=== PATIENT | male | born 1975 | race Caucasian/White ===

== ENCOUNTER 2023-12-30 11:26 | Outpatient (REF) | payer MEDICARE, MEDICAID, SELFPAY | END 2023-12-30 11:27 | disposition home or self-care (01) | LOC: HO.HAP 11:26 | PROVIDERS: PCP Internal Medicine; Visit Provider Internal Medicine | DX: Z46.1 Encounter for fitting and adjustment of hearing aid (principal); H90.3 Sensorineural hearing loss, bilateral | CPT/HCPCS: 92593; 99499 ==

== ENCOUNTER 2023-12-30 13:15 | Outpatient (REF) | payer SELFPAY | END 2023-12-30 13:16 | disposition home or self-care (01) | LOC: HO.HAP 13:15 | PROVIDERS: Visit Provider Internal Medicine | DX: Z46.1 Encounter for fitting and adjustment of hearing aid (principal); H90.3 Sensorineural hearing loss, bilateral | CPT/HCPCS: V5267 ==

== ENCOUNTER 2023-12-31 08:19 | Outpatient (REF) | payer SELFPAY | END 2023-12-31 08:20 | disposition home or self-care (01) | LOC: HO.HAP 08:19 | PROVIDERS: Visit Provider Internal Medicine | DX: Z13.89 Encounter for screening for other disorder (principal) ==

== ENCOUNTER 2024-07-26 10:51 | Outpatient (REF) | payer MEDICARE, MEDICAID, SELFPAY | END 2024-07-26 10:52 | disposition home or self-care (01) | LOC: HO.SH 10:51 | PROVIDERS: Visit Provider Internal Medicine | DX: Z01.118 Encounter for examination of ears and hearing with other abnormal findings (principal); H90.3 Sensorineural hearing loss, bilateral | CPT/HCPCS: 92557; 92567 ==

== ENCOUNTER 2024-11-23 11:35 | Outpatient (REF) | payer SELFPAY ==
--- OUTSIDE RECORDS SUMMARY | 2024-11-23 13:27 | XMS_ITS | Clinical Summary ---
Author Organization [facility] Address [address] [place] [address] Care Team Providers Care Concert Singer Name Role Phone Unavailable Primary Care Provider Unavailabl e Source Comments PLEASE NOTE, if this patient is a minor, it may be UNLAWFUL to discuss sensitive information that is contained in these records (such as FAMILY PLANNING, MENTAL HEALTH or SUBSTANCE ABUSE) with the minor patient's parent or other person without the patient's specific authorization.[facility] Medications ergocalciferol, vitamin D2, (VITAMIN D2) 50,000 unit tabletIndicatio ns:Vitamin D deficiency Take 1 Tab by mouth once a week. 4 Tab 3 05/16/2013 Active lisinopril-hydr ochlorothiazide (PRINZIDE,ZESTO RETIC) 20-25 mg per tablet Take 1 Tab by mouth once daily. 30 Tab 3 08/16/2013 Active lisinopril-hydr ochlorothiazide (PRINZIDE,ZESTO RETIC) 20-25 mg per tablet TAKE 1 TABLET BY MOUTH ONCE DAILY. 30 Tab 0 07/07/2014 Active ergocalciferol, vitamin D2, (VITAMIN D2) 50,000 unit capsule TAKE 1 CAPSULE BY MOUTH ONCE A WEEK. 4 Cap 0 07/10/2014 Active Active Problems Problem Noted Date Diagnosed Date Obesity, Class III, BMI 40-49.9 (morbid obesity) ([facility]) 05/12/2013 HTN (hypertension) 05/12/2013 HLD (hyperlipidemia) 05/12/2013 Vitamin D deficiency 05/12/2013 GERD (gastroesophageal reflux disease) 3 Social History Tobacco Use Types Packs/Day Years Used Date Smoking Tobacco: Never Assessed Sex and Gender Information Value Date Recorded Sex Assigned at Not on file Legal Sex Male 11:36 AM PDT Gender Identity Not on file Sexual Orientation Not on file Last Filed Vital Signs Vital Sign Reading Time Taken Comments Blood Pressure 120/70 05/12/2013 11:49 AM EDT Pulse 60 05/12/2013 11:49 AM EDT Temperature 37.3 ??C (99.1 ??F) 05/12/2013 11:49 AM E DT Respiratory Rate 16 05/12/2013 11:49 AM EDT Oxygen Saturation - - Inhaled Oxygen Concentration - - Weight 152 kg (335 lb) 05/12/2013 11:49 AM EDT Height 190.5 cm (6' 3 ) 05/12/2013 11:49 AM EDT Body Mass Index 41.87 05/12/2013 11:49 AM EDT Plan of Treatment Not on file [place]
== END 2024-11-23 11:36 | disposition home or self-care (01) ==
LOC: HO.HAP 11:35
PROVIDERS: Visit Provider Internal Medicine
DX: Z46.1 Encounter for fitting and adjustment of hearing aid (principal)
CPT/HCPCS: V5267